=== PATIENT | female | born 1960 | race Caucasian/White ===

== ENCOUNTER → 2021-02-02 | Outpatient (REF) | payer BC ==
[2021-02-02 18:14] LABS: CREATININE, URINE 64.7 MG/DL; MAU/CREAT RATIO 156.1 MCG/MG (0.0-30.0)
== END ==
LOC: M LAB REF 12:34
PROVIDERS: ATTEND Nurse Practitioner Family
DX: R30.0 Dysuria (principal)

== ENCOUNTER → 2021-02-02 | Outpatient (REF) | payer BC ==
[2021-02-02 13:39] LABS: BASO # 0.1 10^3/uL (0.0-0.2); BASO % 0.9 % (0.0-1.0); EOS # 0.2 10^3/uL (0.0-0.5); HEMATOCRIT 46.6 % (36.0-47.0); HEMOGLOBIN 16.2 g/dl (12.0-15.5); LYMPH # 3.5 10^3/uL (1.5-5.0); LYMPH % 43.4 % (24.0-44.0); MEAN CORPUSCULAR HEMOGLOBIN 33.3 pg (27.0-33.0); MEAN CORPUSCULAR HGB CONC 34.8 g/dl (32.0-36.5); MEAN CORPUSCULAR VOLUME 95.9 fl (80.0-96.0); MONO # 0.4 10^3/uL (0.0-0.8); MONO % 4.9 % (2.0-8.0); NEUTROPHILS # 3.9 10^3/uL (1.5-8.5); NEUTROPHILS % 48.5 % (36.0-66.0); PLATELET COUNT, AUTOMATED 150 10^3/uL (150-450); RED BLOOD COUNT 4.86 10^6/uL (4.00-5.40)
[2021-02-02 15:09] LABS: ALBUMIN 3.5 GM/DL (3.2-5.2); ALT/SGPT 31 U/L (12-78); BILIRUBIN,TOTAL 0.4 MG/DL (0.2-1.0); BLOOD UREA NITROGEN 10 MG/DL (7-18); CALCIUM LEVEL 8.8 MG/DL (8.5-10.1); CARBON DIOXIDE LEVEL 35 MEQ/L (21-32); CHLORIDE LEVEL 103 MEQ/L (98-107); CREATININE FOR GFR 0.78 MG/DL (0.55-1.30); GLOMERULAR FILTRATION RATE > 60.0 (>51); GLUCOSE, FASTING 317 MG/DL (70-100); POTASSIUM SERUM 4.1 MEQ/L (3.5-5.1); SODIUM LEVEL 141 MEQ/L (136-145); TOTAL PROTEIN 6.7 GM/DL (6.4-8.2)
[2021-02-02 15:54] LABS: HEMOGLOBIN A1c 8.7 %
== END ==
LOC: M LABDRWAD 12:23
PROVIDERS: ATTEND Nurse Practitioner Family
DX: R81 Glycosuria (principal); R73.9 Hyperglycemia, unspecified

== ENCOUNTER → 2021-07-16 | Outpatient (CLI) | payer BC ==
[~2021-07-16] MED LIST: ATIV1TAB7 PO; METF500T13 PO; [UNRECOGNIZED DRUG - CODE] PO; xyzal PO
--- NOTE | 2021-07-16 15:27 | REP ---
INDICATION: HEMACHROMATOSIS. COMPARISON: No comparison imaging. TECHNIQUE: Axial and coronal T1 and T2 weighted sequences include spin echo, fast spin echo, gradient echo, and diffusion-weighted scans. FINDINGS: Incidental note is made of multiple uterine fibroids and a 5.1 cm cyst in the left adnexa. No filling defect is seen within the lumen of the gallbladder on T2 weighted scans. There is a tiny left lobe sub cm liver cyst. There is a similar sub cm cyst in the central portion of the right lobe of the liver. No other focal liver lesion is seen. No pancreatic abnormality is observed. The spleen is unremarkable. No renal mass is observed. The signal intensity liver parenchyma is hyperintense relative to skeletal muscle on standard T2 weighted scans. There does not appear to be evidence of significantly increased hepatic iron deposition. IMPRESSION: Small subcentimeter hepatic cysts. Otherwise negative. No MR evidence of significantly increased iron deposition in the liver. <Electronically signed by Bird Villa > 07/16/21 [id number]
== END ==
LOC: M PLARAD 09:46
PROVIDERS: ATTEND Internal Medicine Medical Oncology
DX: E83.110 Hereditary hemochromatosis (principal); K76.89 Other specified diseases of liver

== ENCOUNTER → 2022-02-09 | Outpatient (CLI) | payer BC ==
[~2022-02-09] MED LIST changes: +LEVOTAB10 PO
[2022-02-10 12:03] LABS: JAK2 MUTATIONS FOR PATH SENDOU See Pathology Report
== END ==
LOC: M ADAMS 13:10
PROVIDERS: ATTEND Internal Medicine Medical Oncology
DX: E83.119 Hemochromatosis, unspecified (principal)

== ENCOUNTER → 2022-05-11 | Outpatient (CLI) | payer BC ==
[~2022-05-11] MED LIST changes: +FISH1000
[2022-05-11 17:08] LABS: BASO # 0.1 10^3/uL (0.0-0.2); BASO % 0.6 % (0.0-1.0); EOS # 0.2 10^3/uL (0.0-0.5); EOS % 1.7 % (0.0-3.0); HEMATOCRIT 50.3 % (36.0-47.0); HEMOGLOBIN 17.3 g/dl (12.0-15.5); LYMPH # 4.1 10^3/uL (1.5-5.0); LYMPH % 46.9 % (24.0-44.0); MEAN CORPUSCULAR HEMOGLOBIN 32.7 pg (27.0-33.0); MEAN CORPUSCULAR HGB CONC 34.4 g/dl (32.0-36.5); MEAN CORPUSCULAR VOLUME 95.1 fl (80.0-96.0); MONO # 0.4 10^3/uL (0.0-0.8); NEUTROPHILS % 45.6 % (36.0-66.0); PLATELET COUNT, AUTOMATED 170 10^3/uL (150-450); RED BLOOD COUNT 5.29 10^6/uL (4.00-5.40); WHITE BLOOD COUNT 8.8 10^3/uL (4.0-10.0)
[2022-05-11 17:32] LABS: ALBUMIN 3.7 GM/DL (3.2-5.2); ALT/SGPT 28 U/L (12-78); BILIRUBIN,TOTAL 0.4 MG/DL (0.2-1.0); BLOOD UREA NITROGEN 13 MG/DL (7-18); CALCIUM LEVEL 9.8 MG/DL (8.8-10.2); CARBON DIOXIDE LEVEL 28 MEQ/L (21-32); CHLORIDE LEVEL 102 MEQ/L (98-107); CREATININE FOR GFR 0.79 MG/DL (0.55-1.30); FERRITIN 105 NG/ML (8-252); GLOMERULAR FILTRATION RATE > 60.0 (>45); GLUCOSE, FASTING 179 MG/DL (70-100); IRON (FE) 128 UG/DL (50-170); PERCENT SATURATION 36.2 % (13.2-45.0); POTASSIUM SERUM 4.2 MEQ/L (3.5-5.1); SODIUM LEVEL 139 MEQ/L (136-145); TOTAL IRON BINDING CAPACITY 354 UG/DL (250-450); TOTAL PROTEIN 7.2 GM/DL (6.4-8.2)
== END ==
LOC: M ADAMS 13:01
PROVIDERS: ATTEND Internal Medicine Medical Oncology
DX: E83.110 Hereditary hemochromatosis (principal)

== ENCOUNTER → 2022-08-10 | Outpatient (CLI) | payer BC ==
[~2022-08-10] MED LIST changes: +METF-839 PO
[2022-08-10 16:00] LABS: BASO # 0.1 10^3/uL (0.0-0.2); BASO % 0.8 % (0.0-1.0); EOS # 0.2 10^3/uL (0.0-0.5); EOS % 1.9 % (0.0-3.0); HEMATOCRIT 48.5 % (36.0-47.0); HEMOGLOBIN 16.7 g/dl (12.0-15.5); LYMPH # 3.5 10^3/uL (1.5-5.0); LYMPH % 43.8 % (24.0-44.0); MEAN CORPUSCULAR HEMOGLOBIN 33.3 pg (27.0-33.0); MEAN CORPUSCULAR HGB CONC 34.4 g/dl (32.0-36.5); MEAN CORPUSCULAR VOLUME 96.6 fl (80.0-96.0); MONO # 0.3 10^3/uL (0.0-0.8); MONO % 4.3 % (2.0-8.0); NEUTROPHILS # 3.9 10^3/uL (1.5-8.5); NEUTROPHILS % 48.9 % (36.0-66.0); PLATELET COUNT, AUTOMATED 149 10^3/uL (150-450); RED BLOOD COUNT 5.02 10^6/uL (4.00-5.40); WHITE BLOOD COUNT 7.9 10^3/uL (4.0-10.0)
[2022-08-10 16:46] LABS: ALBUMIN 3.4 GM/DL (3.2-5.2); ALT/SGPT 27 U/L (12-78); BILIRUBIN,TOTAL 0.3 MG/DL (0.2-1.0); BLOOD UREA NITROGEN 11 MG/DL (7-18); CALCIUM LEVEL 9.1 MG/DL (8.8-10.2); CARBON DIOXIDE LEVEL 24 MEQ/L (21-32); CHLORIDE LEVEL 103 MEQ/L (98-107); CHOLESTEROL LEVEL 207 MG/DL (<200); CREATININE FOR GFR 0.76 MG/DL (0.55-1.30); GLOMERULAR FILTRATION RATE > 60.0 (>45); GLUCOSE, FASTING 212 MG/DL (70-100); HDL CHOLESTEROL 30 MG/DL (>40); NON-HDL-C 177 MG/DL; POTASSIUM SERUM 4.3 MEQ/L (3.5-5.1); SODIUM LEVEL 137 MEQ/L (136-145); TOTAL PROTEIN 6.9 GM/DL (6.4-8.2); TRIGLYCERIDES LEVEL 594 MG/DL (<150)
== END ==
LOC: M LABDRWAD 13:19
PROVIDERS: ATTEND Nurse Practitioner Family
DX: E78.5 Hyperlipidemia, unspecified (principal); E08.00 Diabetes mellitus due to underlying condition with hyperosmolarity without nonketotic hyperglycemic-hyperosmolar coma (NKHHC)

== ENCOUNTER → 2022-08-10 | Outpatient (CLI) | payer BC ==
[2022-08-10 16:00] LABS: BASO # 0.1 10^3/uL (0.0-0.2); BASO % 0.8 % (0.0-1.0); EOS # 0.2 10^3/uL (0.0-0.5); EOS % 2.3 % (0.0-3.0); HEMATOCRIT 48.1 % (36.0-47.0); HEMOGLOBIN 16.6 g/dl (12.0-15.5); LYMPH # 3.3 10^3/uL (1.5-5.0); LYMPH % 44.9 % (24.0-44.0); MEAN CORPUSCULAR HEMOGLOBIN 33.4 pg (27.0-33.0); MEAN CORPUSCULAR HGB CONC 34.5 g/dl (32.0-36.5); MEAN CORPUSCULAR VOLUME 96.8 fl (80.0-96.0); MONO # 0.3 10^3/uL (0.0-0.8); MONO % 4.4 % (2.0-8.0); NEUTROPHILS # 3.5 10^3/uL (1.5-8.5); NEUTROPHILS % 47.5 % (36.0-66.0); PLATELET COUNT, AUTOMATED 131 10^3/uL (150-450); RED BLOOD COUNT 4.97 10^6/uL (4.00-5.40); WHITE BLOOD COUNT 7.4 10^3/uL (4.0-10.0)
[2022-08-10 16:42] LABS: ALBUMIN 3.5 GM/DL (3.2-5.2); ALT/SGPT 26 U/L (12-78); BILIRUBIN,TOTAL 0.3 MG/DL (0.2-1.0); BLOOD UREA NITROGEN 12 MG/DL (7-18); CALCIUM LEVEL 9.4 MG/DL (8.8-10.2); CARBON DIOXIDE LEVEL 28 MEQ/L (21-32); CHLORIDE LEVEL 102 MEQ/L (98-107); CREATININE FOR GFR 0.74 MG/DL (0.55-1.30); FERRITIN 86 NG/ML (8-252); GLOMERULAR FILTRATION RATE > 60.0 (>45); GLUCOSE, FASTING 212 MG/DL (70-100); POTASSIUM SERUM 4.5 MEQ/L (3.5-5.1); SODIUM LEVEL 138 MEQ/L (136-145); TOTAL PROTEIN 6.9 GM/DL (6.4-8.2)
== END ==
LOC: M LABDRWAD 13:22
PROVIDERS: ATTEND Internal Medicine Medical Oncology
DX: E83.119 Hemochromatosis, unspecified (principal)

== ENCOUNTER → 2022-09-09 | Outpatient (CLI) | payer BC | LOC: M RAD 14:39 | PROVIDERS: ATTEND Internal Medicine Medical Oncology | DX: Z12.2 Encounter for screening for malignant neoplasm of respiratory organs (principal); Z87.891 Personal history of nicotine dependence; I25.10 Atherosclerotic heart disease of native coronary artery without angina pectoris ==

== ENCOUNTER → 2022-12-02 | Outpatient (CLI) | payer BC | LOC: M WHC 14:45 | PROVIDERS: ATTEND Specialist | DX: Z12.4 Encounter for screening for malignant neoplasm of cervix (principal); C51.9 Malignant neoplasm of vulva, unspecified | CPT/HCPCS: 88304; G0123 ==

== ENCOUNTER → 2023-01-06 | Outpatient (REF) | payer BC ==
[2023-01-06 14:59] LABS: BASO # 0.1 10^3/uL (0.0-0.2); BASO % 0.8 % (0.0-1.0); EOS # 0.1 10^3/uL (0.0-0.5); EOS % 2.3 % (0.0-3.0); HEMATOCRIT 47.5 % (36.0-47.0); HEMOGLOBIN 16.5 g/dl (12.0-15.5); LYMPH # 2.4 10^3/uL (1.5-5.0); LYMPH % 37.8 % (24.0-44.0); MEAN CORPUSCULAR HEMOGLOBIN 33.3 pg (27.0-33.0); MEAN CORPUSCULAR HGB CONC 34.7 g/dl (32.0-36.5); MONO # 0.4 10^3/uL (0.0-0.8); MONO % 6.9 % (2.0-8.0); NEUTROPHILS # 3.2 10^3/uL (1.5-8.5); NEUTROPHILS % 51.9 % (36.0-66.0); PLATELET COUNT, AUTOMATED 183 10^3/uL (150-450); RED BLOOD COUNT 4.95 10^6/uL (4.00-5.40); WHITE BLOOD COUNT 6.2 10^3/uL (4.0-10.0)
[2023-01-06 15:31] LABS: ALBUMIN 3.6 G/DL (3.2-5.2); ALKALINE PHOSPHATASE 67 U/L (46-116); ALT/SGPT 25 U/L (7.0-40); AST/SGOT 20 U/L (<34); BILIRUBIN,TOTAL 0.6 MG/DL (0.3-1.2); BLOOD UREA NITROGEN 9 MG/DL (9-23); CALCIUM LEVEL 9.3 MG/DL (8.3-10.6); CARBON DIOXIDE LEVEL 31 MMOL/L (20-31); CHLORIDE LEVEL 104 MMOL/L (98-107); CHOLESTEROL LEVEL 191 MG/DL (<200); GLOMERULAR FILTRATION RATE > 60.0 (>45); GLUCOSE, FASTING 106 MG/DL (74-106); HDL CHOLESTEROL 37.4 MG/DL (>40); LDL CHOLESTEROL 94.8 MG/DL (<100); NON-HDL-C 154 MG/DL; POTASSIUM SERUM 4.4 MMOL/L (3.5-5.1); SODIUM LEVEL 140 MMOL/L (136-145); THYROID STIMULATING HORMONE 1.428 uIU/ML (0.55-4.78); TOTAL PROTEIN 6.8 G/DL (5.7-8.2); TRIGLYCERIDES LEVEL 294 MG/DL (<150)
== END ==
LOC: M LABDRWAD 14:44
PROVIDERS: ATTEND Nurse Practitioner Family
DX: E78.1 Pure hyperglyceridemia (principal); E08.00 Diabetes mellitus due to underlying condition with hyperosmolarity without nonketotic hyperglycemic-hyperosmolar coma (NKHHC); E78.5 Hyperlipidemia, unspecified

== ENCOUNTER → 2023-01-06 | Outpatient (REF) | payer BC ==
[2023-01-06 15:22] LABS: BLOOD UREA NITROGEN 9 MG/DL (9-23); CALCIUM LEVEL 9.2 MG/DL (8.3-10.6); CARBON DIOXIDE LEVEL 31 MMOL/L (20-31); CHLORIDE LEVEL 105 MMOL/L (98-107); CREATININE FOR GFR 0.68 MG/DL (0.55-1.30); GLOMERULAR FILTRATION RATE > 60.0 (>45); GLUCOSE, FASTING 106 MG/DL (74-106); POTASSIUM SERUM 4.4 MMOL/L (3.5-5.1); SODIUM LEVEL 141 MMOL/L (136-145)
== END ==
LOC: M LABDRWAD 14:41
PROVIDERS: ATTEND Obstetrics & Gynecology
DX: C51.9 Malignant neoplasm of vulva, unspecified (principal); E11.9 Type 2 diabetes mellitus without complications

== ENCOUNTER → 2023-01-11 | Outpatient (CLI) | payer BC ==
[~2023-01-11] MED LIST changes: +GASTROGRAFIN SOLUTION 30ML As Ordered ONE; +ISOVUE-370 76% 100ML VIAL As Ordered ONE
== END ==
LOC: M RAD 15:19
PROVIDERS: ATTEND Obstetrics & Gynecology
DX: C51.9 Malignant neoplasm of vulva, unspecified (principal); D25.9 Leiomyoma of uterus, unspecified; K76.0 Fatty (change of) liver, not elsewhere classified; M47.816 Spondylosis without myelopathy or radiculopathy, lumbar region

== ENCOUNTER → 2024-04-19 | Outpatient (CLI) | payer BC ==
[~2024-04-19] MED LIST changes: -FISH1000; +FISH1000 PO; -GASTROGRAFIN SOLUTION 30ML As Ordered ONE; +GLIM1TAB84 PO; -ISOVUE-370 76% 100ML VIAL As Ordered ONE; +OMEGCAP4 PO
== END ==
LOC: M WHC 13:34
PROVIDERS: ATTEND Specialist
DX: Z12.31 Encounter for screening mammogram for malignant neoplasm of breast (principal); R92.313 Mammographic fatty tissue density, bilateral breasts; Z80.3 Family history of malignant neoplasm of breast; N63.20 Unspecified lump in the left breast, unspecified quadrant

== ENCOUNTER → 2024-04-19 | Outpatient (REF) | payer BC ==
[2024-04-23 15:09] LABS: HPV APTIMA Positive (Negative)
== END ==
LOC: M SFHCWAGY 17:34
PROVIDERS: ATTEND Specialist
DX: Z12.4 Encounter for screening for malignant neoplasm of cervix (principal); N90.3 Dysplasia of vulva, unspecified; L57.0 Actinic keratosis
CPT/HCPCS: 87624; 88305; G0123

== ENCOUNTER → 2024-05-06 | Outpatient (CLI) | payer BC | LOC: M WHC 14:25 | PROVIDERS: ATTEND Specialist | DX: R92.8 Other abnormal and inconclusive findings on diagnostic imaging of breast (principal); N63.20 Unspecified lump in the left breast, unspecified quadrant ==

== ENCOUNTER → 2024-12-25 | Outpatient (CLI) | payer BC | LOC: M WHC 12:51 | PROVIDERS: ATTEND Specialist | DX: R92.8 Other abnormal and inconclusive findings on diagnostic imaging of breast (principal) ==

== ENCOUNTER → 2025-02-28 | Outpatient (CLI) | payer BC | LOC: M RAD 15:22 | PROVIDERS: ATTEND Nurse Practitioner Family | DX: Z12.2 Encounter for screening for malignant neoplasm of respiratory organs (principal); F17.210 Nicotine dependence, cigarettes, uncomplicated; I25.10 Atherosclerotic heart disease of native coronary artery without angina pectoris; I70.0 Atherosclerosis of aorta; K76.0 Fatty (change of) liver, not elsewhere classified ==